=== PATIENT | female | born 1955 | race Caucasian/White ===

== ENCOUNTER 2017-01-14 05:54 | Inpatient (IN) ==
[2017-01-14] MEDS ORDERED: Albuterol 2.5 MG/3 ML NEBULIZER IH ONE (06:13)
[2017-01-14] MEDS ORDERED: Clindamycin 900 MG/50 ML 900 MG/50 ML IV.SOLN IVPB ONE (06:13)
[2017-01-14] MEDS ORDERED: Ringers Solution, Lactated 1,000 ML IVC SCH ×2 (06:15→13:25)
[2017-01-14] MEDS ORDERED: *HR* FentaNYL (PF) 100 MCG/2 ML VIAL ONE (06:30)
[2017-01-14] MEDS ORDERED: *HR* Propofol 200 MG/20 ML VIAL IVP ONE (06:30)
[2017-01-14] MEDS ORDERED: Ondansetron 4 MG/2 ML VIAL ONE (06:30)
[2017-01-14] MEDS ORDERED: *HR* Succinylcholine 200 MG/10 ML VIAL IVP ONE (06:30)
[2017-01-14] MEDS ORDERED: *HR* Remifentanil 1 MG VIAL IVP ONE ×2 (06:30→10:47)
[2017-01-14] MEDS ORDERED: Lidocaine -MPF 2% 2 ML VIAL ONE (06:30)
[2017-01-14] MEDS ORDERED: Dexamethasone 4 MG/ML VIAL ONE (06:30)
[2017-01-14] MEDS ORDERED: *HR* Labetalol 100 MG/20 ML MDV IVP PRN (06:57)
[2017-01-14] MEDS ORDERED: *HR* Morphine 2 MG/ML SYRINGE IVP PRN ×2 (06:57→13:25)
[2017-01-14] MEDS ORDERED: Ondansetron 4 MG/2 ML VIAL IVP ONE (06:57)
[2017-01-14] MEDS ORDERED: Gabapentin 300 MG CAPSULE PO ONE (07:00)
--- NOTE | 2017-01-14 07:00 | Anesthesia Evaluation PreOp ---
Date of Encounter: 01/14/17 Time of Encounter: 06:45 - Past History Planned Operation: anterior cervical decompression Cardiac History: Other (Was told she had an abnormal heart condition as a child. Was seen by doctors at the time. 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.), Past Anesthesia Alcohol Use: none Drug use: none Medications and Allergies Acetaminophen [Tylenol] 325 mg PO Q6HR PRN 01/14/17 [History] Albuterol Sulfate [Ventolin Hfa] 2 gm IH Q4H PRN 01/14/17 [History] carBAMazepine [Tegretol Xr] 200 mg PO BID 01/14/17 [History] metFORMIN [Glucophage] 500 mg PO BIDWM 01/14/17 [History] Allergies clonazepam [From Klonopin] Adverse Reaction (Verified 01/14/17 06:27) See Comments ibuprofen Adverse Reaction (Verified 01/14/17 06:27) See Comments naproxen [From Naprosyn] Adverse Reaction (Verified 01/14/17 06:27) See Comments Penicillins [PCN] Adverse Reaction (Verified 01/14/17 06:27) See Comments - Meds/Allergy Pre-op Review Medications Reviewed: Yes Allergies Reviewed: Yes Anesthesia Results - Labs Laboratory Tests 01/09/17 01/09/17 01/09/17 13:28 13:28 13:28 WBC 6.6 Hgb 14.3 Hct 42.6 Plt Count 245 INR 1.2 Sodium 134 L Potassium 4.6 H Chloride 100 Carbon Dioxide 26 BUN 9 Creatinine 0.65 - Imaging EKG: image reviewed (sinus rhythm with nonspecific T wave abnormality) Anesthesia Exam Selected Entries 01/14/17 06:22 Temperature 98.7 F Pulse Rate 77 Respiratory Rate 18 Blood Pressure 141/79 O2 Sat by Pulse Oximetry 96 Height: 4'9" Weight: 98 lbs NPO (# of Hours): over 8 hours - HEENT Pupil (Motor): Pupils equal Teeth: Edentulous Oral Opening: Greater than 3 - BINMAN BINMAN Sensory: Normal: LUE (constant numbness and weakness ) - Cardiac Rhythm: Regular Murmur: None - Pulmonary Breath Sounds: bilateral Clear Respiratory Effort: Symmetrical Anesthesia Assess/Plan ASA Score: 3 Modified Oleksandr Scale for Level of Consciousness: Cooperative, oriented, and tranquil Anesthetic Plan: General Monitoring Plan: Standard Monitors Recovery Plan: PACU
--- NOTE | 2017-01-14 07:32 | History & Physical Report ---
Date of Encounter: 01/14/17 Time of Encounter: 07:32 24 Hour HP Update - Instructions Instructions: If the History and Physical is less than 30 days old and was completed prior to A.M. admission and or procedure and has NOT been updated on calendar day of procedure please complete this update prior to performing procedure. - Update Patient reports changes in Medical Condition: No Changes in examination, assessment, or condition: No Changes in Medication: No Preop tests/diagnostics Reviewed: Yes Pre-Op MRSA Screen: Negative Surgery Remains Indicated: Yes Consent for Planned Operative Procedure(s) Verified: Yes - Pre-Operative Checklist Preoperative Checklist Indicated: No Prophylactic Antibiotic Ordered: Yes Home Medications Include Beta Neville: No Beta Neville Taken Today (Day of Surgery): No Beta Neville Taken Yesterday (Day Prior to Surgery): No Is VTE Prophylaxis Indicated?: Yes
[2017-01-14] MEDS ORDERED: Acetaminophen IV 1,000 MG/100 ML INFUS..BTL ONE (08:10)
[2017-01-14] MEDS ORDERED: EPHEDrine 50 MG/ML VIAL ONE (08:15)
[2017-01-14] MEDS ORDERED: *HR* Morphine 10 MG/ML VIAL ONE (11:38)
--- NOTE | 2017-01-14 11:58 | Orthopedic Operative Note ---
Date of procedure: 01/14/17 Pre-op diagnosis: Cervical stenosis, cervical myelopathy Post-op diagnosis: same Operation/Findings: Corpectomy C4, cervical fusion C3-C6: The patient was brought to the operating room and placed supine on the operating room table. Successful general endotracheal anesthesia intubation was performed. Neurophysiologic monitoring personnel placed leads on the upper and lower extremities as well as the cranium for EMG monitoring purposes. Appropriate baseline potentials were noted by the neurophysiologic monitoring staff. Juarez catheter was placed prior to positioning. Compression boots and stockings were placed for deep vein thrombosis prophylaxis. Padding was also placed all bony prominences including the ulnar nerve near the medial epicondyles of the elbows were appropriately padded. Mild traction was placed on the bilateral shoulders and taped into place. Preoperative antibiotics were administered. The area from the mandible bilaterally to the upper thoraces was prepped and draped in the usual sterile fashion. An oblique incision was made at the level of the cricoid cartilage which is approximately 3 cm in length and extended from the midline of the cervical spine laterally and proximally towards the sternocleidomastoid muscle on the left. It was 1 cm medial and parallel to the left sternocleidomastoid muscle. We then performed standard medial approach to the carotid sheath. Sponges were used to tease the fascial medial to the sternocleidomastoid muscle while carefully controlling and palpating the carotid artery. Using careful dissection we were able to get to the level of the anterior vertebral bodies and longus coli muscles. The spinal needle was placed at the appropriate C5-6 level, and intraoperative radiograph was obtained which was a cervical spine lateral radiograph. The needle and radiograph confirmed we were at the correct C5-6 operative level. We further exposed this level by using Bovie cautery under the medial edge of the longus colli muscles to allow them to be retracted approximately 2 mm laterally on each side. An 11 blade was used to perform anterior discectomy at the appropriate C5-6 level after an initial annulotomy of the anterior longitudinal ligament and annulus was performed. Further disc material was removed with pituitary Rongeurs. Subsequently, Synthes pins were placed at the C5 and C6 vertebral bodies respectively to provide distraction. We then used a Trimline cervical retractor which was placed in both medial and lateral as well as inferior superior direction to allow full visualization of the appropriate C5-6 disc and C5 and C6 vertebral bodies. The Leica microscope was brought to the field and the remainder of the procedure was performed under the guidance of this microscope. Using pituitary rongeurs and small curettes, various micro- instruments, a full discectomy was performed at the appropriate C5-6 level. The posterior longitudinal ligament was encountered and appeared partially calcified. A portion of this ligament was removed. After complete and thorough discectomy and removal of spondylitic material was performed the endplates of the C5 and C6 vertebral bodies were prepared with a bur until allow bleeding of cancellous bone. A 7mm trial graft was evaluated and appeared to fit quite well within the excised C5-6 disc space. A cortico- cancellous allograft of 7 mm was utilized, carefully tapped into place within the excised disc space with the aid of a bone tamp. It was seated approximately 2 mm from the anterior edge of the cortex of the adjacent vertebral bodies. We then turned our attention to the C4-5 level where a similar series of procedures was performed including discectomy, removal of spondylitic material, and end plate preparation. Now that the C4-5 level was decompressed, we turned our attention to the C3-4 level and again performed discectomy, removal of spondylitic material, and endplate preparation. Again we decompressed to the anterior portion of the posterior longitudinal ligament. Portions of this ligament were removed as was done previously at C4-5. At this point the C3-4 and C4-5 levels had been decompressed, and this left intervening C4 vertebral body bone. Using Kerrison Rogeurs removed C4 vertebral body bone in saved this bone for later use. This was supplemented with some been demineralized bone matrix. After the corpectomy of C4 the space from the inferior portion of C3 to the superior endplate of C5 was fully decompressed and the spinal cord and portions of posterior longitudinal ligament was visualized. We selected an appropriate sized corpectomy cage to fill this space. We then placed autograft bone as well as bone matrix within the corpectomy cage. We then carefully placed the expandable cage in the space between the inferior portion of C3 and the superior portion of C5. When found to be in appropriate position the separator inserter was removed. A cervical plate was then placed on the anterior aspect of the C3, C4, C5 and C6 vertebral bodies. The plate was placed in the midline position after drilling six 13 mm self tapping screws and inserting them. They were locked in place using standard Venture plate maneuvers. At this point a lateral radiograph of the cervical spine was obtained and showed satisfactory position of the graft , expandable cage, and plate. The wound was copiously irrigated and bleeders encountered were cauterized using Bovie cautery. Platysma was closed with interrupted 2-0 Vicryl sutures. Running 3-0 Monocryl suture was used for skin closure. Sterile dressing was placed over the neck wound. A cervical collar was placed. The patient was transferred to a hospital bed and extubated. The patient was noted to be fully motor and sensory intact in the recovery room at the end of the procedure. The medications. All sponge instrument and needle counts were correct at the end of the procedure. Anesthesia: GETA Surgeon: Ayad Lynne Jr Estimated blood loss (cc): 100 Condition: stable Disposition: PACU
--- NOTE | 2017-01-14 13:07 | Anesthesia Evaluation Post Op ---
Date of Encounter: 01/14/17 Time of Encounter: 12:59 - Vital Signs Vital Signs: vss - Lungs Lungs: Clear Ascult./Percussion - Airway Airway: Non-obstructed - Cardiovascular Baseline Rhythm - Mental Status Mental Status: Alert & Oriented, Answers Appropriately - Pain Pain Scale used: Gagan (Faces) - Nausea Vomiting Nausea Vomiting: Not Present - Hydration Hydration: Ice chips - Discharge PostOp Status: Transfer Patient to floor
[2017-01-14] MEDS ORDERED: Naloxone 0.4 MG/ML INJ IVP PRN (13:25)
[2017-01-14] MEDS ORDERED: Acetaminophen 325 MG TABLET PO PRN (13:25)
[2017-01-14] MEDS ORDERED: Ondansetron 4 MG/2 ML VIAL IVP PRN (13:25)
[2017-01-14] MEDS: *HR* OxyCODONE Immed Rel 5 MG TABLET PO PRN ×2 (15:04→21:31)
[2017-01-14] MEDS ORDERED: Clindamycin 600 MG/50 ML 600 MG/50 ML IV.SOLN IVPB SCH (16:00)
[2017-01-14] MEDS ORDERED: Clindamycin 600 MG in D5% in Water 50 ML IVPB SCH (16:00)
[2017-01-14] MEDS: Clindamycin 600 MG/50 ML 600 MG/50 ML IV.SOLN IVPB SCH (16:43)
[2017-01-14] MEDS: *HR* Metformin 500 MG TABLET PO SCH (16:44)
[2017-01-14] MEDS: CarBAMazepine XR (12 hr) 100 MG TAB PO SCH (21:50)
[2017-01-15] MEDS: Clindamycin 600 MG/50 ML 600 MG/50 ML IV.SOLN IVPB SCH (00:30)
[2017-01-15] MEDS: *HR* OxyCODONE Immed Rel 5 MG TABLET PO PRN (04:53)
[2017-01-15] MEDS: *HR* Metformin 500 MG TABLET PO SCH (08:41)
[2017-01-15] MEDS: CarBAMazepine XR (12 hr) 100 MG TAB PO SCH (08:41)
[2017-01-15 11:15] VITALS: BP 147/79
--- NOTE | 2017-01-15 11:41 | Discharge Summary ---
Date of Encounter: 01/15/17 Time of Encounter: 11:39 - Discharge Diagnosis (1) Cervical stenosis of spinal canal Priority: Primary Status: Chronic (2) Cervical myelopathy Priority: Secondary Status: Chronic - Discharge Medications Prescriptions: OxyCODONE Immed Rel [Roxicodone 5 MG] 5 mg PO Q6HR PRN #60 tablet PRN Reason: Severe Pain Home Medications: Acetaminophen [Tylenol] 325 mg PO Q6HR PRN 01/14/17 [History] Albuterol Sulfate [Ventolin Hfa] 2 gm IH Q4H PRN 01/14/17 [History] carBAMazepine [Tegretol Xr] 200 mg PO BID 01/14/17 [History] metFORMIN [Glucophage] 500 mg PO BIDWM 01/14/17 [History] OxyCODONE Immed Rel [Roxicodone 5 MG] 5 mg PO Q6HR PRN #60 tablet 01/15/17 [Rx] Allergies/Adverse Reactions: Allergies clonazepam [From Klonopin] Adverse Reaction (Verified 01/14/17 06:27) See Comments ibuprofen Adverse Reaction (Verified 01/14/17 06:27) See Comments naproxen [From Naprosyn] Adverse Reaction (Verified 01/14/17 06:27) See Comments Penicillins [PCN] Adverse Reaction (Verified 01/14/17 06:27) See Comments Labs on day of discharge: Labs from last 24 hours 01/15/17 01/15/17 01/14/17 11:14 07:08 20:27 POC Glucose 115 H 116 H 121 H 01/14/17 01/14/17 01/14/17 16:49 13:44 12:12 POC Glucose 124 H 140 H 126 H - Impressions ITS Impressions Cervical Spine X-Ray 01/14/17 08:02 IMPRESSION: Intraprocedural fluoroscopic spot images as above. See separate procedure report for more information. D/ / Rubens Ewing MD / Rubens Ewing MD Interpreting Provider: Rubens Ewing MD Fluoroscopy 01/14/17 08:02 IMPRESSION: Intraprocedural fluoroscopic spot images as above. See separate procedure report for more information. D/ / Rubens Ewing MD / Rubens Ewing MD Interpreting Provider: Rubens Ewing MD Cervical Spine X-Ray 01/15/17 07:17 IMPRESSION: Expected postsurgical changes with no acute complication. D/ / 01/15/2017 08:15:00 Sanjiv Garcia MD / [email or web address] Interpreting Provider: Sanjiv Garcia MD Date of admission: 01/14/17 13:18 Primary care physician: Taylor Casey Consults: 01/14/17 13:25 Consult to Occupational Therapy [CONS] Routine Comment: Evaluate, develop and implement POC Reason for Consult: Postoperative Consult to Physical Therapy [CONS] Routine Comment: Evaluate, develop and implement POC Reason for Consult: Postoperative Consult to Spine Navigator [CONS] [CONS] Routine - Patient Status Disposition: Home, Self-Care Condition: Good Functional capacity at discharge: uses cane/walker Overall status at discharge: patient is progressing back to baseline - Discharge Instructions Follow Up With: Lakisha Patton PAC [Physician Gymnastic Coach] - 01/28/17 8:00 am Taylor Casey [Primary Care Provider] - - Diet and Activity Activity: as per physical therapy Diet: advance to your usual diet - Hospital Course Hospital course: Ms. Amador is a 61 year old female The patient had an uneventful postoperative course. Progressed from intravenous analgesic needs to oral analgesic needs only. Remained neurovascularly intact and mobilized satisfactorily. All intraoperative and/or postoperative radiographic studies were satisfactory. Patient is discharged with plan for rehabilitation and follow-up in 2 weeks post discharge on analgesic medication and patient's home medications. - Time Spent with Patient Total time spent providing and/or coordinating discharge services: - VTE Documentation of Mechanical Device: Intermittent pneumatic compression device
== END 2017-01-15 14:55 | disposition home or self-care (01) | DRG 472 ==
LOC: SAMDAY 05:54 → 3NENU 13:18
PROVIDERS: ADMIT Orthopaedic Surgery Orthopaedic Surgery of the Spine; ATTEND Orthopaedic Surgery Orthopaedic Surgery of the Spine
PROC: SPICORP (2017-01-14 07:45)

== ENCOUNTER 2020-02-15 08:28 | Inpatient (IN) ==
[2020-02-15] MEDS ORDERED: Isovue-370 500 ML BOTTLE IVP ONE (09:08)
[2020-02-15] MEDS ORDERED: Dexamethasone 4 MG/ML VIAL IVP ONE (09:09)
[2020-02-15 09:15] LABS: Basophils % 0.5 %; Eosinophils # 0.1 K/mcL (0.0-0.6); Eosinophils % 1.4 %; Hematocrit 44.2 % (35.3-44.9); Hemoglobin 14.5 g/dL (11.5-15.4); Immature Granulocytes % 0.8 % (0-4); Lymphocytes % 22.9 %; Mean Corpuscular HGB Conc 32.8 g/dL (31.6-35.5); Mean Corpuscular Hemoglobin 35.1 pg (28.0-33.3); Mean Platelet Volume 10.3 fL (9.4-12.4); Monocytes # 0.7 K/mcL (0.0-1.3); Monocytes % 8.2 %; Neutrophils # 5.6 K/mcL (1.6-8.9); Nucleated Red Blood Cells 0.2 /100 WBC (0); Platelet Count 224 K/mcL (140-400); Red Blood Count 4.13 M/mcL (3.82-4.97); Red Cell Distribution Width 14.5 % (11.5-14.5); Segmented Neutrophils % 66.2 %; White Blood Count 8.5 K/mcL (4.3-11.1)
[2020-02-15 09:25] LABS: BUN/Creatinine Ratio 23 (6-26); Blood Urea Nitrogen 11 mg/dL (8-23); Carbon Dioxide 29 mEq/L (23-29); Chloride 102 mEq/L (98-107); Glucose 98 mg/dL (70-105); Osmolality,Calculated 281 (280-300); Potassium 4.4 mEq/L (3.5-5.1); Sodium 136 mEq/L (136-145); eGFR For African Americans > 60 (> 60); eGFR For Non-African Americans > 60 (> 60)
[2020-02-15 09:26] LABS: Troponin I < 0.03 ng/mL (< 0.04)
[2020-02-15] MEDS ORDERED: Azithromycin 500 MG in D5% in Water 250 ML IVPB ONE (12:30)
[2020-02-15] MEDS ORDERED: cefTRIAXone 1,000 MG in 0.9 % Sodium Chloride Mini Bag 100 ML IVPB ONE (12:30)
[2020-02-15] MEDS ORDERED: Naloxone 0.4 MG/ML INJ IVP PRN (12:37)
[2020-02-15] MEDS ORDERED: Ondansetron 4 MG/2 ML VIAL IVP PRN (12:37)
[2020-02-15] MEDS ORDERED: *HR* Labetalol 20 MG/4 ML SYRINGE IVP PRN (13:01)
[2020-02-15] MEDS: Ipratropium/Albuterol Neb 3 ML IH SCH ×2 (15:44→17:25)
[2020-02-15] MEDS: Nicotine 21 MG PATCH.TD24 TD SCH (17:30)
[2020-02-15] MEDS: MethylPREDNISolone 40 MG/ML VIAL IVP SCH (18:05)
[2020-02-15] MEDS: CarBAMazepine XR (12 hr) 100 MG TAB PO SCH (21:49)
[2020-02-15] MEDS: Budesonide/Formoterol 160/4.5 1 PUFF INH IH SCH (22:27)
[2020-02-16] MEDS: Ipratropium/Albuterol Neb 3 ML IH SCH ×7 (00:11→23:46)
[2020-02-16 01:18] LABS: Basophils % 0.3 %; Hematocrit 39.1 % (35.3-44.9); Hemoglobin 13.2 g/dL (11.5-15.4); Immature Granulocytes % 1.2 % (0-4); Lymphocytes % 13.6 %; Mean Corpuscular HGB Conc 33.8 g/dL (31.6-35.5); Mean Corpuscular Hemoglobin 35.7 pg (28.0-33.3); Mean Corpuscular Volume 105.7 fL (83.0-100.0); Mean Platelet Volume 10.6 fL (9.4-12.4); Monocytes # 0.4 K/mcL (0.0-1.3); Monocytes % 4.6 %; Neutrophils # 6.2 K/mcL (1.6-8.9); Nucleated Red Blood Cells 0.4 /100 WBC (0); Platelet Count 225 K/mcL (140-400); Red Cell Distribution Width 13.7 % (11.5-14.5); Segmented Neutrophils % 80.3 %; White Blood Count 7.7 K/mcL (4.3-11.1)
[2020-02-16 01:40] LABS: BUN/Creatinine Ratio 21 (6-26); Blood Urea Nitrogen 9 mg/dL (8-23); Carbon Dioxide 27 mEq/L (23-29); Chloride 99 mEq/L (98-107); Glucose 133 mg/dL (70-105); Magnesium 1.8 mg/dL (1.6-2.6); Osmolality,Calculated 275 (280-300); Potassium 4.2 mEq/L (3.5-5.1); Sodium 132 mEq/L (136-145); eGFR For African Americans > 60 (> 60); eGFR For Non-African Americans > 60 (> 60)
[2020-02-16 01:49] LABS: Thyroid Stimulating Hormone 0.298 mcIU/mL (0.340-5.600)
[2020-02-16 01:59] LABS: Folate 6.3 ng/mL (3.0-16.0)
[2020-02-16] MEDS: MethylPREDNISolone 40 MG/ML VIAL IVP SCH ×2 (05:34→17:12)
[2020-02-16] MEDS: *HR* Enoxaparin 40 MG/0.4 ML SYRINGE SQ SCH (05:34)
[2020-02-16] MEDS: Budesonide/Formoterol 160/4.5 1 PUFF INH IH SCH ×2 (07:41→20:16)
[2020-02-16] MEDS ORDERED: *HR* Metoprolol 5 MG/5 ML VIAL IVP STA (08:03)
[2020-02-16] MEDS: Nicotine 21 MG PATCH.TD24 TD SCH (08:19)
[2020-02-16] MEDS: Azithromycin 250 MG TABLET PO SCH (08:19)
[2020-02-16] MEDS: CarBAMazepine XR (12 hr) 100 MG TAB PO SCH ×2 (08:19→21:23)
[2020-02-16] MEDS ORDERED: Acetaminophen 325 MG TABLET PO PRN (16:08)
[2020-02-17] MEDS: Ipratropium/Albuterol Neb 3 ML IH SCH ×2 (03:46→07:32)
[2020-02-17] MEDS: MethylPREDNISolone 40 MG/ML VIAL IVP SCH (05:28)
[2020-02-17] MEDS: *HR* Enoxaparin 40 MG/0.4 ML SYRINGE SQ SCH (05:28)
[2020-02-17 05:32] LABS: Triiodothyronine (T3) Free 2.24 pg/mL (2.50-3.90)
[2020-02-17 07:15] VITALS: BP 127/82
[2020-02-17] MEDS: Budesonide/Formoterol 160/4.5 1 PUFF INH IH SCH (07:32)
[2020-02-17] MEDS ORDERED: *HR* Metoprolol 5 MG/5 ML VIAL IVP ONE (07:50)
[2020-02-17] MEDS: CarBAMazepine XR (12 hr) 100 MG TAB PO SCH (08:20)
[2020-02-17] MEDS: Azithromycin 250 MG TABLET PO SCH (08:20)
[2020-02-17] MEDS: Nicotine 21 MG PATCH.TD24 TD SCH (08:21)
[2020-02-17] MEDS ORDERED: Aspirin Enteric Coated 81 MG Tablet PO SCH (09:00)
== END 2020-02-17 11:17 | disposition home or self-care (01) | DRG 191 ==
LOC: EMEROOARM 08:28 → 3BNU 08:28 → SUATTDRO 12:37 → 3BNU 15:22
PROVIDERS: ADMIT Pharmacist; ATTEND Internal Medicine

== ENCOUNTER 2020-11-01 08:24 | Inpatient (IN) ==
[2020-11-01] MEDS ORDERED: Naloxone 0.4 MG/ML INJ IVP PRN (12:10)
[2020-11-01] MEDS ORDERED: Ondansetron 4 MG/2 ML VIAL IVP PRN (12:10)
[2020-11-01] MEDS ORDERED: DilTIAZem 50 MG/50 ML IV.SOLN IVC SCH (12:15)
[2020-11-01 12:40] LABS: Basophils % 0.4 %; Eosinophils # 0.1 K/mcL (0.0-0.6); Eosinophils % 0.5 %; Hematocrit 35.3 % (35.3-44.9); Hemoglobin 11.2 g/dL (11.5-15.4); Immature Granulocytes % 0.7 % (0-4); Lymphocytes # 1.2 K/mcL (0.6-4.6); Lymphocytes % 11.8 %; Mean Corpuscular HGB Conc 31.7 g/dL (31.6-35.5); Mean Corpuscular Hemoglobin 33.8 pg (28.0-33.3); Mean Corpuscular Volume 106.6 fL (83.0-100.0); Mean Platelet Volume 9.2 fL (9.4-12.4); Monocytes # 0.8 K/mcL (0.0-1.3); Monocytes % 7.7 %; Neutrophils # 8.1 K/mcL (1.6-8.9); Nucleated Red Blood Cells 0.5 /100 WBC (0); Platelet Count 223 K/mcL (140-400); Red Blood Count 3.31 M/mcL (3.82-4.97); Red Cell Distribution Width 15.8 % (11.5-14.5); Segmented Neutrophils % 78.9 %; White Blood Count 10.2 K/mcL (4.3-11.1)
[2020-11-01 12:53] LABS: INR 1.4
[2020-11-01 12:56] LABS: Activated Partial Thrombo Time 29.2 Seconds (26.0-36.0)
[2020-11-01 13:05] LABS: Alanine Aminotransferase 8 Units/L (7-52); Albumin 3.8 g/dL (3.5-5.7); Albumin/Globulin Ratio 1.1 (1.1-2.2); Alkaline Phosphatase 94 Units/L (34-104); Aspartate Amino Transferase 14 Units/L (13-39); BUN/Creatinine Ratio 34 (6-26); Bilirubin,Total 0.7 mg/dL (0.3-1.0); Blood Urea Nitrogen 21 mg/dL (8-23); Calcium 9.7 mg/dL (8.6-10.3); Carbon Dioxide 34 mEq/L (23-29); Chloride 102 mEq/L (98-107); Chol/HDL Ratio 2.4 (0-4.9); Cholesterol 157 mg/dL (< 200); Globulin 3.6 g/dL (2.4-3.5); Glucose 104 mg/dL (70-105); HDL Cholesterol 65 mg/dL (40-59); LDL Cholesterol,Calculated 81 mg/dL (< 100); Magnesium 1.7 mg/dL (1.6-2.6); Osmolality,Calculated 291 (280-300); Potassium 4.3 mEq/L (3.5-5.1); Sodium 139 mEq/L (136-145); Total Protein 7.4 g/dL (6.4-8.9); Triglycerides 55 mg/dL (< 150); Troponin I 0.07 ng/mL (< 0.04); eGFR For African Americans > 60 (> 60); eGFR For Non-African Americans > 60 (> 60)
[2020-11-01] MEDS ORDERED: Levothyroxine 25 MCG TABLET PO SCH (13:15)
[2020-11-01 13:18] LABS: Bilirubin,Urine Negative (Negative); Blood,Urine Negative (Negative); Clarity,Urine Clear (Clear); Color,Urine Colorless (Yellow); Glucose,Urine (UA) Normal (Normal); Ketones,Urine Negative (Negative); Leukocyte Esterase,Urine Negative (Negative); Nitrite,Urine Negative (Negative); Protein,Urine Negative (Neg-Trace); Specific Gravity,Urine 1.009 (1.010-1.025); Urobilinogen,Urine Normal (Normal)
[2020-11-01] MEDS ORDERED: carBAMazepine 200 MG TABLET PO SCH (15:00)
[2020-11-01] MEDS: Ipratropium/Albuterol Neb 3 ML IH SCH ×3 (15:24→21:04)
[2020-11-01] MEDS ORDERED: *HR* Heparin 5,000 UNIT/ML VIAL IVP PRN (15:25)
[2020-11-01] MEDS ORDERED: *HR* Heparin 5,000 UNIT/ML VIAL IVP ONE (15:25)
[2020-11-01] MEDS: MethylPREDNISolone 40 MG/ML VIAL IVP SCH ×2 (16:00→23:41)
[2020-11-01] MEDS: Heparin 25,000UNIT/250ML 1/2NS 25,000 UNIT/250 ML IV.SOLN IVC SCH (16:01)
[2020-11-01] MEDS ORDERED: Perflutren Lipid Microsphere 1.3 ML in 0.9 % Sodium Chloride 8.7 ML IVP PRN (16:09)
[2020-11-01] MEDS: Doxycycline 100 MG in 0.9 % Sodium Chloride Mini Bag 100 ML IVPB SCH (18:08)
[2020-11-01] MEDS: carBAMazepine 200 MG TABLET PO SCH (20:22)
[2020-11-01] MEDS: Budesonide/Formoterol 160/4.5 1 PUFF INH IH SCH (21:04)
[2020-11-01] MEDS ORDERED: Furosemide 20 MG/2 ML VIAL IVP ONE (21:33)
[2020-11-02] MEDS: Ipratropium/Albuterol Neb 3 ML IH SCH ×4 (03:47→22:51)
[2020-11-02 04:29] LABS: Hematocrit 32.1 % (35.3-44.9); Hemoglobin 10.2 g/dL (11.5-15.4); Mean Corpuscular HGB Conc 31.8 g/dL (31.6-35.5); Mean Corpuscular Hemoglobin 33.4 pg (28.0-33.3); Mean Corpuscular Volume 105.2 fL (83.0-100.0); Mean Platelet Volume 9.8 fL (9.4-12.4); Platelet Count 216 K/mcL (140-400); Red Blood Count 3.05 M/mcL (3.82-4.97); Red Cell Distribution Width 15.4 % (11.5-14.5); White Blood Count 6.3 K/mcL (4.3-11.1)
[2020-11-02 04:45] LABS: BUN/Creatinine Ratio 33 (6-26); Blood Urea Nitrogen 18 mg/dL (8-23); Calcium 9.7 mg/dL (8.6-10.3); Carbon Dioxide 34 mEq/L (23-29); Chloride 99 mEq/L (98-107); Glucose 147 mg/dL (70-105); Magnesium 1.6 mg/dL (1.6-2.6); Osmolality,Calculated 289 (280-300); Phosphorous 3.8 mg/dL (2.7-4.5); Potassium 4.2 mEq/L (3.5-5.1); Sodium 137 mEq/L (136-145); eGFR For African Americans > 60 (> 60); eGFR For Non-African Americans > 60 (> 60)
[2020-11-02] MEDS: *HR* Heparin 5,000 UNIT/ML VIAL IVP PRN ×2 (05:05→12:20)
[2020-11-02 05:09] LABS: Folate 6.9 ng/mL (3.0-16.0)
[2020-11-02] MEDS: Doxycycline 100 MG in 0.9 % Sodium Chloride Mini Bag 100 ML IVPB SCH ×2 (05:27→17:45)
[2020-11-02] MEDS: carBAMazepine 200 MG TABLET PO SCH ×2 (09:33→20:20)
[2020-11-02] MEDS: MethylPREDNISolone 40 MG/ML VIAL IVP SCH ×3 (09:33→23:12)
[2020-11-02] MEDS: Budesonide/Formoterol 160/4.5 1 PUFF INH IH SCH ×2 (10:57→22:52)
[2020-11-02] MEDS: Heparin 25,000UNIT/250ML 1/2NS 25,000 UNIT/250 ML IV.SOLN IVC SCH (23:23)
[2020-11-03 03:08] LABS: Hematocrit 31.2 % (35.3-44.9); Hemoglobin 10.2 g/dL (11.5-15.4); Mean Corpuscular HGB Conc 32.7 g/dL (31.6-35.5); Mean Corpuscular Hemoglobin 34.1 pg (28.0-33.3); Mean Corpuscular Volume 104.3 fL (83.0-100.0); Mean Platelet Volume 10.4 fL (9.4-12.4); Platelet Count 229 K/mcL (140-400); Red Blood Count 2.99 M/mcL (3.82-4.97); Red Cell Distribution Width 15.2 % (11.5-14.5); White Blood Count 7.8 K/mcL (4.3-11.1)
[2020-11-03 03:30] LABS: BUN/Creatinine Ratio 62 (6-26); Blood Urea Nitrogen 29 mg/dL (8-23); Calcium 9.7 mg/dL (8.6-10.3); Carbon Dioxide 29 mEq/L (23-29); Chloride 100 mEq/L (98-107); Glucose 182 mg/dL (70-105); Magnesium 1.6 mg/dL (1.6-2.6); Osmolality,Calculated 288 (280-300); Potassium 4.4 mEq/L (3.5-5.1); Sodium 134 mEq/L (136-145); eGFR For African Americans > 60 (> 60); eGFR For Non-African Americans > 60 (> 60)
[2020-11-03] MEDS: Ipratropium/Albuterol Neb 3 ML IH SCH ×4 (04:47→22:30)
[2020-11-03] MEDS: Doxycycline 100 MG in 0.9 % Sodium Chloride Mini Bag 100 ML IVPB SCH (06:33)
[2020-11-03] MEDS: MethylPREDNISolone 40 MG/ML VIAL IVP SCH ×2 (08:28→16:45)
[2020-11-03] MEDS: carBAMazepine 200 MG TABLET PO SCH ×2 (08:28→21:42)
[2020-11-03] MEDS: Budesonide/Formoterol 160/4.5 1 PUFF INH IH SCH ×2 (10:55→22:30)
[2020-11-03] MEDS ORDERED: Furosemide 40 MG/4 ML VIAL IVP SCH (13:45)
[2020-11-03 14:31] LABS: INR 1.3; Prothrombin Time 14.8 Seconds (9.4-12.1)
[2020-11-03] MEDS ORDERED: Nicotine 21 MG PATCH.TD24 TD SCH (15:00)
[2020-11-03] MEDS ORDERED: Acetaminophen 325 MG TABLET PO PRN ×2 (17:35→20:29)
[2020-11-03] MEDS ORDERED: *HR* Warfarin 5 MG TABLET PO ONE (18:00)
[2020-11-03] MEDS ORDERED: Warfarin perPT PO PRN ×2 (18:00→20:34)
[2020-11-03] MEDS ORDERED: Naloxone 0.4 MG/ML INJ IVP PRN (19:38)
[2020-11-03] MEDS ORDERED: Ondansetron 4 MG/2 ML VIAL IVP PRN (19:38)
[2020-11-03] MEDS ORDERED: Furosemide 20 MG TABLET PO SCH (19:38)
[2020-11-03] MEDS ORDERED: MethylPREDNISolone 40 MG/ML VIAL IVP SCH (23:00)
[2020-11-04] MEDS: MethylPREDNISolone 40 MG/ML VIAL IVP SCH ×3 (00:22→15:38)
[2020-11-04] MEDS: Ipratropium/Albuterol Neb 3 ML IH SCH ×4 (03:19→20:11)
[2020-11-04 03:59] LABS: Hematocrit 33.7 % (35.3-44.9); Hemoglobin 10.8 g/dL (11.5-15.4); Mean Corpuscular Hemoglobin 33.8 pg (28.0-33.3); Mean Corpuscular Volume 105.3 fL (83.0-100.0); Mean Platelet Volume 10.3 fL (9.4-12.4); Platelet Count 263 K/mcL (140-400); Red Cell Distribution Width 15.8 % (11.5-14.5); White Blood Count 8.3 K/mcL (4.3-11.1)
[2020-11-04 04:14] LABS: BUN/Creatinine Ratio 46 (6-26); Blood Urea Nitrogen 34 mg/dL (8-23); Calcium 9.8 mg/dL (8.6-10.3); Carbon Dioxide 33 mEq/L (23-29); Chloride 101 mEq/L (98-107); Glucose 160 mg/dL (70-105); Magnesium 1.8 mg/dL (1.6-2.6); Osmolality,Calculated 297 (280-300); Phosphorous 3.8 mg/dL (2.7-4.5); Potassium 4.7 mEq/L (3.5-5.1); Sodium 138 mEq/L (136-145); eGFR For African Americans > 60 (> 60); eGFR For Non-African Americans > 60 (> 60)
[2020-11-04] MEDS: Levothyroxine 25 MCG TABLET PO SCH (05:39)
[2020-11-04] MEDS ORDERED: Levothyroxine 25 MCG TABLET PO SCH (06:30)
[2020-11-04] MEDS ORDERED: Furosemide 40 MG/4 ML VIAL IVP SCH (09:00)
[2020-11-04] MEDS: carBAMazepine 200 MG TABLET PO SCH ×2 (09:06→20:11)
[2020-11-04] MEDS: Nicotine 21 MG PATCH.TD24 TD SCH (09:07)
[2020-11-04] MEDS: Budesonide/Formoterol 160/4.5 1 PUFF INH IH SCH ×2 (10:10→20:12)
[2020-11-04 10:35] LABS: Heparin anti-factor XA UFH < 0.04 IU/mL (0.30-0.70)
[2020-11-04 10:36] LABS: INR 1.4; Prothrombin Time 15.9 Seconds (9.4-12.1)
[2020-11-04] MEDS ORDERED: *HR* Warfarin 5 MG TABLET PO ONE (18:00)
[2020-11-05] MEDS: MethylPREDNISolone 40 MG/ML VIAL IVP SCH ×2 (00:25→08:55)
[2020-11-05] MEDS: Ipratropium/Albuterol Neb 3 ML IH SCH ×4 (04:04→21:29)
[2020-11-05] MEDS: Levothyroxine 25 MCG TABLET PO SCH (05:50)
[2020-11-05 07:48] LABS: Hematocrit 33.3 % (35.3-44.9); Hemoglobin 10.9 g/dL (11.5-15.4); Mean Corpuscular HGB Conc 32.7 g/dL (31.6-35.5); Mean Corpuscular Hemoglobin 34.2 pg (28.0-33.3); Mean Corpuscular Volume 104.4 fL (83.0-100.0); Mean Platelet Volume 9.8 fL (9.4-12.4); Platelet Count 255 K/mcL (140-400); Red Blood Count 3.19 M/mcL (3.82-4.97); Red Cell Distribution Width 15.9 % (11.5-14.5); White Blood Count 9.9 K/mcL (4.3-11.1)
[2020-11-05 08:04] LABS: INR 2.5; Prothrombin Time 28.4 Seconds (9.4-12.1)
[2020-11-05 08:13] LABS: BUN/Creatinine Ratio 54 (6-26); Blood Urea Nitrogen 37 mg/dL (8-23); Calcium 9.7 mg/dL (8.6-10.3); Carbon Dioxide 33 mEq/L (23-29); Chloride 98 mEq/L (98-107); Glucose 156 mg/dL (70-105); Magnesium 1.7 mg/dL (1.6-2.6); Osmolality,Calculated 292 (280-300); Phosphorous 3.5 mg/dL (2.7-4.5); Sodium 135 mEq/L (136-145); eGFR For African Americans > 60 (> 60); eGFR For Non-African Americans > 60 (> 60)
[2020-11-05] MEDS: carBAMazepine 200 MG TABLET PO SCH ×2 (08:55→22:48)
[2020-11-05] MEDS: Nicotine 21 MG PATCH.TD24 TD SCH (09:09)
[2020-11-05] MEDS: Furosemide 40 MG TABLET PO SCH (09:09)
[2020-11-05] MEDS: Budesonide/Formoterol 160/4.5 1 PUFF INH IH SCH ×2 (10:02→21:30)
[2020-11-05] MEDS: Metoprolol XL (24 HR) Succ 50 MG TAB.ER.24H PO SCH (22:49)
[2020-11-06 01:58] LABS: Hematocrit 35.5 % (35.3-44.9); Hemoglobin 11.5 g/dL (11.5-15.4); Mean Corpuscular HGB Conc 32.4 g/dL (31.6-35.5); Mean Corpuscular Hemoglobin 34.1 pg (28.0-33.3); Mean Corpuscular Volume 105.3 fL (83.0-100.0); Mean Platelet Volume 10.3 fL (9.4-12.4); Platelet Count 269 K/mcL (140-400); Red Blood Count 3.37 M/mcL (3.82-4.97); Red Cell Distribution Width 15.7 % (11.5-14.5); White Blood Count 10.9 K/mcL (4.3-11.1)
[2020-11-06 02:03] LABS: INR 2.6; Prothrombin Time 29.8 Seconds (9.4-12.1)
[2020-11-06 02:16] LABS: BUN/Creatinine Ratio 66 (6-26); Blood Urea Nitrogen 46 mg/dL (8-23); Calcium 9.8 mg/dL (8.6-10.3); Carbon Dioxide 33 mEq/L (23-29); Chloride 94 mEq/L (98-107); Glucose 128 mg/dL (70-105); Magnesium 1.9 mg/dL (1.6-2.6); Osmolality,Calculated 292 (280-300); Phosphorous 4.3 mg/dL (2.7-4.5); Potassium 4.5 mEq/L (3.5-5.1); Sodium 134 mEq/L (136-145); eGFR For African Americans > 60 (> 60); eGFR For Non-African Americans > 60 (> 60)
[2020-11-06] MEDS: Ipratropium/Albuterol Neb 3 ML IH SCH ×2 (03:45→10:43)
[2020-11-06] MEDS: Levothyroxine 25 MCG TABLET PO SCH (05:41)
[2020-11-06] MEDS ORDERED: Regadenoson 0.4 MG/5 ML SYRINGE IVP ONE (06:31)
[2020-11-06 06:47] VITALS: BP 128/83
[2020-11-06] MEDS: Nicotine 21 MG PATCH.TD24 TD SCH (08:10)
[2020-11-06] MEDS: carBAMazepine 200 MG TABLET PO SCH (08:19)
[2020-11-06] MEDS: Furosemide 40 MG TABLET PO SCH (08:19)
[2020-11-06] MEDS: Metoprolol XL (24 HR) Succ 50 MG TAB.ER.24H PO SCH (08:19)
[2020-11-06] MEDS ORDERED: lisinopriL 5 MG TABLET PO SCH (09:00)
[2020-11-06] MEDS: Budesonide/Formoterol 160/4.5 1 PUFF INH IH SCH (10:42)
[2020-11-06] MEDS ORDERED: *HR* Warfarin 2.5 MG TABLET PO ONE (18:00)
== END 2020-11-06 15:45 | disposition home or self-care (01) | DRG 189 ==
LOC: ICNU 09:51 → SUATTDRO 09:51 → 3ANU 11-02 12:47
PROVIDERS: ADMIT Pediatrics; ATTEND Family Medicine

== ENCOUNTER 2021-01-03 03:36 | Inpatient (IN) ==
[2021-01-03] MEDS: FentaNYL (PF) 1,000 MCG/100 ML IV.SOLN IVC SCH ×2 (09:30→22:55)
[2021-01-03] MEDS ORDERED: Acetaminophen 325 MG TABLET PO PRN (09:39)
[2021-01-03] MEDS ORDERED: Naloxone 0.4 MG/ML INJ IVP PRN (09:39)
[2021-01-03] MEDS ORDERED: Azithromycin 500 MG in 0.9 % Sodium Chloride 250 ML IVPB ONE (09:39)
[2021-01-03] MEDS ORDERED: Artificial Tears SOLN 15 ML BOTTLE BOTH EYES PRN (09:39)
[2021-01-03 09:43] LABS: ABG Base Excess 0 mEq/L (-2 to 3); ABG HCO3 25 mEq/L (21-27); ABG Oxygen Saturation 94 % (95-98); ABG PCO2 45 mmHg (35-45); ABG PH 7.36 pH Units (7.32-7.45); ABG PO2 75 mmHg (85-104); ABG TCO2 27 mEq/L (20-26); Blood Gas Modality ASSIST CONTROL; Blood Gas VT 420 cc
[2021-01-03] MEDS ORDERED: Albuterol 2.5 MG/3 ML NEBULIZER IH PRN (09:47)
[2021-01-03] MEDS: Ipratropium/Albuterol Neb 3 ML IH SCH ×4 (11:02→23:13)
[2021-01-03] MEDS: Artificial Tears SOLN 15 ML BOTTLE BOTH EYES SCH ×4 (11:28→23:15)
[2021-01-03] MEDS: cefTRIAXone 2,000 MG in Water for inj. (sterile) 20 ML IVP SCH (11:28)
[2021-01-03] MEDS: MethylPREDNISolone 40 MG/ML VIAL IVP SCH ×2 (11:28→17:10)
[2021-01-03] MEDS: Pantoprazole 40 MG VIAL IVP SCH (11:29)
[2021-01-03 15:24] LABS: Basophils % 0.1 %; Hematocrit 30.3 % (35.3-44.9); Immature Granulocytes % 0.8 % (0-4); Lymphocytes # 0.6 K/mcL (0.6-4.6); Lymphocytes % 5.1 %; Mean Corpuscular Hemoglobin 34.7 pg (28.0-33.3); Mean Corpuscular Volume 105.2 fL (83.0-100.0); Mean Platelet Volume 10.3 fL (9.4-12.4); Monocytes # 0.5 K/mcL (0.0-1.3); Monocytes % 4.3 %; Neutrophils # 10.1 K/mcL (1.6-8.9); Nucleated Red Blood Cells 0.2 /100 WBC (0); Platelet Count 198 K/mcL (140-400); Red Blood Count 2.88 M/mcL (3.82-4.97); Red Cell Distribution Width 16.3 % (11.5-14.5); Segmented Neutrophils % 89.7 %; White Blood Count 11.2 K/mcL (4.3-11.1)
[2021-01-03 15:40] LABS: INR 2.1; Prothrombin Time 24.2 Seconds (9.4-12.1)
[2021-01-03 15:42] LABS: Activated Partial Thrombo Time 28.5 Seconds (26.0-36.0)
[2021-01-03 15:54] LABS: Alanine Aminotransferase 9 Units/L (7-52); Albumin 3.2 g/dL (3.5-5.7); Albumin/Globulin Ratio 1.1 (1.1-2.2); Alkaline Phosphatase 68 Units/L (34-104); Aspartate Amino Transferase 12 Units/L (13-39); BUN/Creatinine Ratio 23 (6-26); Bilirubin,Direct 0.1 mg/dL (0.0-0.2); Bilirubin,Indirect 0.4 mg/dL (0.0-1.0); Bilirubin,Total 0.5 mg/dL (0.3-1.0); Blood Urea Nitrogen 11 mg/dL (8-23); Calcium 8.9 mg/dL (8.6-10.3); Carbon Dioxide 26 mEq/L (23-29); Chloride 103 mEq/L (98-107); Globulin 2.9 g/dL (2.4-3.5); Glucose 135 mg/dL (70-105); Magnesium 1.9 mg/dL (1.6-2.6); Osmolality,Calculated 277 (280-300); Phosphorous 2.9 mg/dL (2.7-4.5); Potassium 4.8 mEq/L (3.5-5.1); Sodium 133 mEq/L (136-145); Total Protein 6.1 g/dL (6.4-8.9); eGFR For African Americans > 60 (> 60); eGFR For Non-African Americans > 60 (> 60)
[2021-01-03] MEDS ORDERED: Furosemide 40 MG/4 ML VIAL IVP ONE (16:23)
[2021-01-03] MEDS: *HR* Heparin 5,000 UNIT/ML VIAL SQ SCH (17:09)
[2021-01-03] MEDS: Chlorhexidine Rinse 15 ML MOUTHWASH MM SCH (19:58)
[2021-01-03] MEDS ORDERED: *HR* Metoprolol 5 MG/5 ML VIAL IVP ONE (21:18)
[2021-01-04] MEDS: Ipratropium/Albuterol Neb 3 ML IH SCH ×8 (03:19→23:40)
[2021-01-04] MEDS: Artificial Tears SOLN 15 ML BOTTLE BOTH EYES SCH ×5 (03:20→19:26)
[2021-01-04 03:43] LABS: VBG Ionized Calcium 1.24 mmol/L (1.15-1.35)
[2021-01-04 03:55] LABS: Basophils % 0.1 %; Hematocrit 31.2 % (35.3-44.9); Hemoglobin 10.2 g/dL (11.5-15.4); Immature Granulocytes % 1.3 % (0-4); Lymphocytes # 1.3 K/mcL (0.6-4.6); Lymphocytes % 11.5 %; Mean Corpuscular HGB Conc 32.7 g/dL (31.6-35.5); Mean Platelet Volume 9.7 fL (9.4-12.4); Monocytes # 0.8 K/mcL (0.0-1.3); Neutrophils # 9.1 K/mcL (1.6-8.9); Nucleated Red Blood Cells 0.6 /100 WBC (0); Platelet Count 215 K/mcL (140-400); Red Cell Distribution Width 16.3 % (11.5-14.5); Segmented Neutrophils % 80.1 %; White Blood Count 11.3 K/mcL (4.3-11.1)
[2021-01-04 03:58] LABS: ABG Base Excess 3 mEq/L (-2 to 3); ABG HCO3 29 mEq/L (21-27); ABG Oxygen Saturation 95 % (95-98); ABG PCO2 49 mmHg (35-45); ABG PH 7.38 pH Units (7.32-7.45); ABG PO2 76 mmHg (85-104); ABG TCO2 30 mEq/L (20-26); Blood Gas Modality ASSIST CONTROL; Blood Gas VT 420 cc
[2021-01-04 04:18] LABS: BUN/Creatinine Ratio 22 (6-26); Blood Urea Nitrogen 13 mg/dL (8-23); Calcium 9.3 mg/dL (8.6-10.3); Carbon Dioxide 28 mEq/L (23-29); Chloride 101 mEq/L (98-107); Glucose 103 mg/dL (70-105); Magnesium 1.8 mg/dL (1.6-2.6); Osmolality,Calculated 280 (280-300); Phosphorous 3.9 mg/dL (2.7-4.5); Potassium 4.8 mEq/L (3.5-5.1); Sodium 135 mEq/L (136-145); Troponin I 0.05 ng/mL (< 0.04); eGFR For African Americans > 60 (> 60); eGFR For Non-African Americans > 60 (> 60)
[2021-01-04] MEDS: MethylPREDNISolone 40 MG/ML VIAL IVP SCH ×2 (05:45→17:52)
[2021-01-04] MEDS: *HR* Heparin 5,000 UNIT/ML VIAL SQ SCH ×2 (05:45→17:52)
[2021-01-04] MEDS: Chlorhexidine Rinse 15 ML MOUTHWASH MM SCH ×2 (07:37→19:26)
[2021-01-04] MEDS: Pantoprazole 40 MG VIAL IVP SCH (07:37)
[2021-01-04] MEDS ORDERED: Furosemide 20 MG/2 ML VIAL IVP ONE (08:29)
[2021-01-04] MEDS: cefTRIAXone 2,000 MG in Water for inj. (sterile) 20 ML IVP SCH (10:50)
[2021-01-04 12:26] LABS: INR 1.7; Prothrombin Time 19.2 Seconds (9.4-12.1)
[2021-01-04] MEDS ORDERED: *HR* Metoprolol 5 MG/5 ML VIAL IVP ONE (13:13)
[2021-01-05] MEDS: Ipratropium/Albuterol Neb 3 ML IH SCH ×5 (03:34→19:39)
[2021-01-05] MEDS: Artificial Tears SOLN 15 ML BOTTLE BOTH EYES SCH ×3 (03:47→11:18)
[2021-01-05 04:01] LABS: VBG Ionized Calcium 1.23 mmol/L (1.15-1.35)
[2021-01-05 04:10] LABS: Basophils % 0.2 %; Eosinophils % 0.1 %; Hematocrit 32.3 % (35.3-44.9); Hemoglobin 10.4 g/dL (11.5-15.4); Immature Granulocytes % 1.6 % (0-4); Lymphocytes # 1.1 K/mcL (0.6-4.6); Lymphocytes % 12.4 %; Mean Corpuscular HGB Conc 32.2 g/dL (31.6-35.5); Mean Corpuscular Hemoglobin 33.5 pg (28.0-33.3); Mean Corpuscular Volume 104.2 fL (83.0-100.0); Mean Platelet Volume 9.8 fL (9.4-12.4); Monocytes # 0.7 K/mcL (0.0-1.3); Monocytes % 7.8 %; Nucleated Red Blood Cells 0.9 /100 WBC (0); Platelet Count 226 K/mcL (140-400); Red Cell Distribution Width 15.9 % (11.5-14.5); Segmented Neutrophils % 77.9 %
[2021-01-05 04:19] LABS: INR 1.5; Prothrombin Time 17.5 Seconds (9.4-12.1)
[2021-01-05 04:31] LABS: BUN/Creatinine Ratio 26 (6-26); Blood Urea Nitrogen 16 mg/dL (8-23); Carbon Dioxide 31 mEq/L (23-29); Chloride 98 mEq/L (98-107); Glucose 112 mg/dL (70-105); Magnesium 1.9 mg/dL (1.6-2.6); Osmolality,Calculated 280 (280-300); Phosphorous 3.4 mg/dL (2.7-4.5); Potassium 4.3 mEq/L (3.5-5.1); Sodium 134 mEq/L (136-145); eGFR For African Americans > 60 (> 60); eGFR For Non-African Americans > 60 (> 60)
[2021-01-05] MEDS: MethylPREDNISolone 40 MG/ML VIAL IVP SCH (05:27)
[2021-01-05] MEDS: *HR* Heparin 5,000 UNIT/ML VIAL SQ SCH (05:28)
[2021-01-05] MEDS ORDERED: Furosemide 40 MG/4 ML VIAL IVP ONE (08:00)
[2021-01-05] MEDS ORDERED: *HR* Enoxaparin 40 MG/0.4 ML SYRINGE SQ SCH ×2 (08:00→18:00)
[2021-01-05] MEDS: Chlorhexidine Rinse 15 ML MOUTHWASH MM SCH (08:25)
[2021-01-05] MEDS: Pantoprazole 40 MG VIAL IVP SCH (08:25)
[2021-01-05] MEDS ORDERED: Azithromycin 250 MG TABLET PO SCH ×2 (09:00)
[2021-01-05] MEDS: FentaNYL (PF) 1,000 MCG/100 ML IV.SOLN IVC SCH (09:16)
[2021-01-05] MEDS ORDERED: Doxycycline 100 MG CAPSULE PO SCH (10:00)
[2021-01-05] MEDS ORDERED: Albuterol 2.5 MG/3 ML NEBULIZER IH PRN (13:05)
[2021-01-05] MEDS ORDERED: Naloxone 0.4 MG/ML INJ IVP PRN (13:05)
[2021-01-05] MEDS: *HR* Enoxaparin 40 MG/0.4 ML SYRINGE SQ SCH (16:13)
[2021-01-05] MEDS ORDERED: *HR* Warfarin 3 MG TABLET PO ONE ×2 (18:00)
[2021-01-05] MEDS ORDERED: Warfarin perPT PO PRN ×2 (18:00)
[2021-01-05] MEDS: Doxycycline 100 MG CAPSULE PO SCH (20:44)
[2021-01-06] MEDS: Ipratropium/Albuterol Neb 3 ML IH SCH ×7 (00:50→23:42)
[2021-01-06] MEDS: Acetaminophen 325 MG TABLET PO PRN ×2 (01:40→14:22)
[2021-01-06 03:04] LABS: Basophils % 0.2 %; Eosinophils # 0.1 K/mcL (0.0-0.6); Eosinophils % 0.8 %; Hematocrit 30.3 % (35.3-44.9); Hemoglobin 10.1 g/dL (11.5-15.4); Immature Granulocytes % 1.9 % (0-4); Lymphocytes # 2.4 K/mcL (0.6-4.6); Lymphocytes % 28.6 %; Mean Corpuscular HGB Conc 33.3 g/dL (31.6-35.5); Mean Corpuscular Hemoglobin 34.2 pg (28.0-33.3); Mean Corpuscular Volume 102.7 fL (83.0-100.0); Mean Platelet Volume 10.4 fL (9.4-12.4); Monocytes # 0.7 K/mcL (0.0-1.3); Monocytes % 8.7 %; Neutrophils # 4.9 K/mcL (1.6-8.9); Nucleated Red Blood Cells 0.5 /100 WBC (0); Platelet Count 223 K/mcL (140-400); Red Blood Count 2.95 M/mcL (3.82-4.97); Red Cell Distribution Width 16.2 % (11.5-14.5); Segmented Neutrophils % 59.8 %; White Blood Count 8.3 K/mcL (4.3-11.1)
[2021-01-06 03:05] LABS: VBG Ionized Calcium 1.13 mmol/L (1.15-1.35)
[2021-01-06 03:11] LABS: INR 1.5; Prothrombin Time 17.2 Seconds (9.4-12.1)
[2021-01-06 03:25] LABS: Alanine Aminotransferase 10 Units/L (7-52); Albumin 3.2 g/dL (3.5-5.7); Albumin/Globulin Ratio 1.1 (1.1-2.2); Alkaline Phosphatase 60 Units/L (34-104); Aspartate Amino Transferase 14 Units/L (13-39); BUN/Creatinine Ratio 38 (6-26); Bilirubin,Total 0.5 mg/dL (0.3-1.0); Blood Urea Nitrogen 23 mg/dL (8-23); Calcium 8.8 mg/dL (8.6-10.3); Carbon Dioxide 31 mEq/L (23-29); Chloride 101 mEq/L (98-107); Globulin 2.9 g/dL (2.4-3.5); Glucose 106 mg/dL (70-105); Magnesium 1.6 mg/dL (1.6-2.6); Osmolality,Calculated 288 (280-300); Phosphorous 2.2 mg/dL (2.7-4.5); Potassium 3.7 mEq/L (3.5-5.1); Sodium 137 mEq/L (136-145); Total Protein 6.1 g/dL (6.4-8.9); eGFR For African Americans > 60 (> 60); eGFR For Non-African Americans > 60 (> 60)
[2021-01-06] MEDS: Levothyroxine 25 MCG TABLET PO SCH (05:13)
[2021-01-06] MEDS: *HR* Enoxaparin 40 MG/0.4 ML SYRINGE SQ SCH ×2 (05:13→16:15)
[2021-01-06] MEDS: Doxycycline 100 MG CAPSULE PO SCH ×2 (08:53→20:09)
[2021-01-06] MEDS: lisinopriL 5 MG TABLET PO SCH (08:53)
[2021-01-06] MEDS: Furosemide 40 MG TABLET PO SCH (08:53)
[2021-01-06] MEDS ORDERED: MethylPREDNISolone 40 MG/ML VIAL IVP SCH (09:00)
[2021-01-06] MEDS: Budesonide/Formoterol 160/4.5 1 PUFF INH IH SCH ×2 (11:27→19:56)
[2021-01-06] MEDS ORDERED: Ondansetron 4 MG/2 ML VIAL IVP PRN (15:38)
[2021-01-06] MEDS ORDERED: *HR* Warfarin 3 MG TABLET PO ONE (18:00)
[2021-01-07] MEDS: Ipratropium/Albuterol Neb 3 ML IH SCH ×3 (03:54→10:58)
[2021-01-07] MEDS: *HR* Enoxaparin 40 MG/0.4 ML SYRINGE SQ SCH (04:09)
[2021-01-07 05:24] LABS: INR 1.6; Prothrombin Time 18.2 Seconds (9.4-12.1)
[2021-01-07] MEDS: Levothyroxine 25 MCG TABLET PO SCH (05:30)
[2021-01-07 05:59] LABS: Folate 3.9 ng/mL (3.0-16.0)
[2021-01-07 07:17] VITALS: BP 109/65
[2021-01-07] MEDS: Budesonide/Formoterol 160/4.5 1 PUFF INH IH SCH (07:22)
[2021-01-07] MEDS: Doxycycline 100 MG CAPSULE PO SCH (07:45)
[2021-01-07] MEDS: lisinopriL 5 MG TABLET PO SCH (07:45)
[2021-01-07] MEDS: Furosemide 40 MG TABLET PO SCH (07:45)
[2021-01-07] MEDS ORDERED: predniSONE 20 MG TABLET PO SCH (09:00)
== END 2021-01-07 11:18 | disposition home or self-care (01) | DRG 208 ==
LOC: SUATTDRO 08:46 → ICNU 08:46 → 2ANU 01-05 14:52
PROVIDERS: ADMIT Internal Medicine; ATTEND Internal Medicine

== ENCOUNTER 2021-01-08 10:18 | Inpatient (IN) ==
[2021-01-08] MEDS ORDERED: methylPREDNISolone 125 MG/2 ML VIAL IVP ONE (10:25)
[2021-01-08] MEDS ORDERED: Ipratropium/Albuterol Neb 3 ML IH ONE (10:26)
[2021-01-08 11:18] LABS: Basophils # 0.1 K/mcL (0.0-0.2); Basophils % 0.3 %; Eosinophils # 0.1 K/mcL (0.0-0.6); Eosinophils % 0.6 %; Hematocrit 37.7 % (35.3-44.9); Immature Granulocytes % 1.3 % (0-4); Lymphocytes # 2.8 K/mcL (0.6-4.6); Lymphocytes % 16.7 %; Mean Corpuscular HGB Conc 32.1 g/dL (31.6-35.5); Mean Corpuscular Hemoglobin 33.9 pg (28.0-33.3); Mean Corpuscular Volume 105.6 fL (83.0-100.0); Mean Platelet Volume 9.8 fL (9.4-12.4); Monocytes # 1.3 K/mcL (0.0-1.3); Monocytes % 7.9 %; Neutrophils # 12.4 K/mcL (1.6-8.9); Nucleated Red Blood Cells 0.4 /100 WBC (0); Platelet Count 281 K/mcL (140-400); Red Blood Count 3.57 M/mcL (3.82-4.97); Red Cell Distribution Width 16.1 % (11.5-14.5); Segmented Neutrophils % 73.2 %
[2021-01-08 11:20] LABS: Hemoglobin 12.1 g/dL (11.5-15.4); White Blood Count 16.9 K/mcL (4.3-11.1)
[2021-01-08 11:26] LABS: INR 1.5; Prothrombin Time 17.1 Seconds (9.4-12.1)
[2021-01-08 11:29] LABS: Activated Partial Thrombo Time 25.8 Seconds (26.0-36.0)
[2021-01-08 11:37] LABS: Alanine Aminotransferase 14 Units/L (7-52); Albumin 4.1 g/dL (3.5-5.7); Albumin/Globulin Ratio 1.3 (1.1-2.2); Alkaline Phosphatase 76 Units/L (34-104); Aspartate Amino Transferase 17 Units/L (13-39); BUN/Creatinine Ratio 46 (6-26); Bilirubin,Direct 0.1 mg/dL (0.0-0.2); Bilirubin,Indirect 0.5 mg/dL (0.0-1.0); Bilirubin,Total 0.6 mg/dL (0.3-1.0); Blood Urea Nitrogen 26 mg/dL (8-23); Calcium 9.8 mg/dL (8.6-10.3); Carbon Dioxide 32 mEq/L (23-29); Chloride 100 mEq/L (98-107); Globulin 3.2 g/dL (2.4-3.5); Glucose 119 mg/dL (70-105); Osmolality,Calculated 290 (280-300); Sodium 137 mEq/L (136-145); Total Protein 7.3 g/dL (6.4-8.9); Troponin I 0.03 ng/mL (< 0.04); eGFR For African Americans > 60 (> 60); eGFR For Non-African Americans > 60 (> 60)
[2021-01-08] MEDS ORDERED: Naloxone 0.4 MG/ML INJ IVP PRN (13:13)
[2021-01-08] MEDS ORDERED: Ondansetron 4 MG/2 ML VIAL IVP PRN (13:13)
[2021-01-08] MEDS ORDERED: Acetaminophen 325 MG TABLET PO PRN (13:13)
[2021-01-08] MEDS ORDERED: *HR* Digoxin 0.5 MG/2 ML AMPUL IVP ONE (14:05)
[2021-01-08] MEDS: Furosemide 20 MG/2 ML VIAL IVP SCH (16:07)
[2021-01-08] MEDS: carBAMazepine 200 MG TABLET PO SCH ×2 (16:07→21:20)
[2021-01-08] MEDS: Ipratropium/Albuterol Neb 3 ML IH SCH ×2 (16:48→18:23)
[2021-01-08] MEDS ORDERED: *HR* Rivaroxaban 15 MG TABLET PO SCH (17:00)
[2021-01-08] MEDS: MethylPREDNISolone 40 MG/ML VIAL IVP SCH (18:19)
[2021-01-08] MEDS: Doxycycline 100 MG CAPSULE PO SCH (21:20)
[2021-01-08] MEDS: Budesonide/Formoterol 160/4.5 1 PUFF INH IH SCH ×2 (22:40)
[2021-01-09] MEDS: MethylPREDNISolone 40 MG/ML VIAL IVP SCH ×3 (00:34→18:19)
[2021-01-09] MEDS: Ipratropium/Albuterol Neb 3 ML IH SCH ×7 (00:37→23:52)
[2021-01-09 02:51] LABS: Basophils % 0.2 %; Hematocrit 31.6 % (35.3-44.9); Hemoglobin 10.7 g/dL (11.5-15.4); Immature Granulocytes % 1.4 % (0-4); Lymphocytes # 0.8 K/mcL (0.6-4.6); Lymphocytes % 7.5 %; Mean Corpuscular HGB Conc 33.9 g/dL (31.6-35.5); Mean Corpuscular Hemoglobin 34.6 pg (28.0-33.3); Mean Corpuscular Volume 102.3 fL (83.0-100.0); Mean Platelet Volume 10.5 fL (9.4-12.4); Monocytes # 0.7 K/mcL (0.0-1.3); Monocytes % 6.1 %; Neutrophils # 9.3 K/mcL (1.6-8.9); Nucleated Red Blood Cells 0.3 /100 WBC (0); Platelet Count 247 K/mcL (140-400); Red Blood Count 3.09 M/mcL (3.82-4.97); Red Cell Distribution Width 15.9 % (11.5-14.5); Segmented Neutrophils % 84.8 %
[2021-01-09 06:28] LABS: BUN/Creatinine Ratio 46 (6-26); Blood Urea Nitrogen 24 mg/dL (8-23); Calcium 9.5 mg/dL (8.6-10.3); Carbon Dioxide 33 mEq/L (23-29); Chloride 97 mEq/L (98-107); Glucose 148 mg/dL (70-105); Magnesium 1.9 mg/dL (1.6-2.6); Osmolality,Calculated 289 (280-300); Potassium 4.2 mEq/L (3.5-5.1); Sodium 136 mEq/L (136-145); eGFR For African Americans > 60 (> 60); eGFR For Non-African Americans > 60 (> 60)
[2021-01-09] MEDS: Budesonide/Formoterol 160/4.5 1 PUFF INH IH SCH ×2 (07:29→19:56)
[2021-01-09] MEDS: Furosemide 20 MG/2 ML VIAL IVP SCH ×2 (07:52→18:19)
[2021-01-09] MEDS: carBAMazepine 200 MG TABLET PO SCH ×2 (07:52→20:26)
[2021-01-09] MEDS: Doxycycline 100 MG CAPSULE PO SCH ×2 (07:52→20:26)
[2021-01-09] MEDS ORDERED: Levothyroxine 25 MCG TABLET PO SCH (09:00)
[2021-01-09 11:21] LABS: INR 1.8
[2021-01-09] MEDS ORDERED: Warfarin perPT PO PRN (18:00)
[2021-01-09] MEDS ORDERED: *HR* Warfarin 4 MG TABLET PO ONE (18:00)
[2021-01-09 19:45] LABS: Adenovirus Not Detected (Not Detect); Bordetella Pertussis Not Detected (Not Detect); Chlamydophila pneumoniae Not Detected (Not Detect); Coronavirus 229E Not Detected (Not Detect); Coronavirus HKU1 Not Detected (Not Detect); Coronavirus NL63 Not Detected (Not Detect); Coronavirus OC43 Not Detected (Not Detect); Human Metapneumovirus Not Detected (Not Detect); Human Rhinovirus/Enterovirus Not Detected (Not Detect); Influenza A Subtype 2009 H1 Not Detected (Not Detect); Influenza B Not Detected (Not Detect); Mycoplasma pneumoniae Not Detected (Not Detect); Parainfluenza Virus 1 Not Detected (Not Detect); Parainfluenza Virus 2 Not Detected (Not Detect); Parainfluenza Virus 3 Not Detected (Not Detect); Parainfluenza Virus 4 Not Detected (Not Detect); Respiratory Syncytial Virus Not Detected (Not Detect); SARS-CoV-2 Not Detected (Not Detect)
[2021-01-10] MEDS: MethylPREDNISolone 40 MG/ML VIAL IVP SCH ×2 (00:52→07:52)
[2021-01-10] MEDS: Ipratropium/Albuterol Neb 3 ML IH SCH ×6 (03:31→23:42)
[2021-01-10] MEDS: Levothyroxine 25 MCG TABLET PO SCH (05:37)
[2021-01-10 06:12] LABS: INR 1.8; Prothrombin Time 20.3 Seconds (9.4-12.1)
[2021-01-10] MEDS: Budesonide/Formoterol 160/4.5 1 PUFF INH IH SCH ×2 (07:38→20:05)
[2021-01-10] MEDS: Doxycycline 100 MG CAPSULE PO SCH ×2 (07:53→20:32)
[2021-01-10] MEDS: Furosemide 20 MG/2 ML VIAL IVP SCH ×2 (07:53→16:48)
[2021-01-10] MEDS: carBAMazepine 200 MG TABLET PO SCH ×2 (07:53→20:33)
[2021-01-10] MEDS ORDERED: lisinopriL 5 MG TABLET PO SCH ×2 (09:00)
[2021-01-10] MEDS ORDERED: Spironolactone 12.5 MG TABLET PO SCH (09:00)
[2021-01-10] MEDS ORDERED: *HR* Warfarin 4 MG TABLET PO ONE (18:00)
[2021-01-11 02:56] LABS: Basophils # 0.1 K/mcL (0.0-0.2); Basophils % 0.4 %; Eosinophils # 0.1 K/mcL (0.0-0.6); Eosinophils % 0.4 %; Hematocrit 30.9 % (35.3-44.9); Hemoglobin 10.2 g/dL (11.5-15.4); Immature Granulocytes % 1.8 % (0-4); Lymphocytes # 3.1 K/mcL (0.6-4.6); Lymphocytes % 25.5 %; Mean Corpuscular Hemoglobin 34.1 pg (28.0-33.3); Mean Corpuscular Volume 103.3 fL (83.0-100.0); Monocytes # 1.1 K/mcL (0.0-1.3); Monocytes % 9.3 %; Neutrophils # 7.5 K/mcL (1.6-8.9); Nucleated Red Blood Cells 0.3 /100 WBC (0); Platelet Count 233 K/mcL (140-400); Red Blood Count 2.99 M/mcL (3.82-4.97); Red Cell Distribution Width 16.2 % (11.5-14.5); Segmented Neutrophils % 62.6 %
[2021-01-11 03:08] LABS: BUN/Creatinine Ratio 57 (6-26); Blood Urea Nitrogen 49 mg/dL (8-23); Calcium 8.8 mg/dL (8.6-10.3); Carbon Dioxide 32 mEq/L (23-29); Chloride 98 mEq/L (98-107); Glucose 106 mg/dL (70-105); Osmolality,Calculated 293 (280-300); Potassium 3.7 mEq/L (3.5-5.1); Sodium 135 mEq/L (136-145); eGFR For African Americans > 60 (> 60); eGFR For Non-African Americans > 60 (> 60)
[2021-01-11] MEDS: Ipratropium/Albuterol Neb 3 ML IH SCH ×3 (04:09→11:27)
[2021-01-11] MEDS: Levothyroxine 25 MCG TABLET PO SCH (05:25)
[2021-01-11] MEDS: Budesonide/Formoterol 160/4.5 1 PUFF INH IH SCH (07:26)
[2021-01-11] MEDS ORDERED: 0.9 % Sodium Chloride 250 ML IVC ONE (08:20)
[2021-01-11] MEDS: carBAMazepine 200 MG TABLET PO SCH (08:22)
[2021-01-11] MEDS: Doxycycline 100 MG CAPSULE PO SCH (08:23)
[2021-01-11] MEDS ORDERED: lisinopriL 5 MG TABLET PO SCH (09:00)
[2021-01-11] MEDS ORDERED: Furosemide 20 MG TABLET PO SCH (09:00)
[2021-01-11] MEDS ORDERED: predniSONE 20 MG TABLET PO SCH (09:00)
[2021-01-11] MEDS ORDERED: Tiotropium 10 INH DOSE IH SCH (10:00)
[2021-01-11 12:31] VITALS: BP 115/72
[2021-01-11] MEDS ORDERED: *HR* Warfarin 4 MG TABLET PO ONE (18:00)
== END 2021-01-11 14:31 | disposition home or self-care (01) | DRG 291 ==
LOC: 2ANU 10:18 → EMEROOARM 10:18 → 2ANU 16:18 → SUATTDRO 01-09 15:29
PROVIDERS: ADMIT Internal Medicine; ATTEND General Practice

== ENCOUNTER 2021-01-23 08:34 | Inpatient (IN) ==
[2021-01-23] MEDS ORDERED: Ipratropium/Albuterol Neb 3 ML IH ONE (08:50)
[2021-01-23] MEDS ORDERED: 0.9 % Sodium Chloride 1,000 ML IVC ONE (09:00)
[2021-01-23] MEDS ORDERED: Ketamine *HR* 500 MG/10 ML MDV IVP ONE (09:30)
[2021-01-23] MEDS ORDERED: Ondansetron 4 MG/2 ML VIAL IVP PRN (10:35)
[2021-01-23] MEDS ORDERED: Naloxone 0.4 MG/ML INJ IVP PRN (10:35)
[2021-01-23] MEDS ORDERED: Azithromycin 500 MG in 0.9 % Sodium Chloride 250 ML IVPB SCH (11:00)
[2021-01-23] MEDS: Morphine Sulfate 2 MG/ML SYRINGE IVP PRN ×4 (12:03→23:07)
[2021-01-23] MEDS: *HR* LORazepam 2 MG/ML VIAL IVP PRN ×3 (12:05→23:07)
[2021-01-23] MEDS ORDERED: MethylPREDNISolone 40 MG/ML VIAL IVP SCH (18:00)
[2021-01-24] MEDS: *HR* LORazepam 2 MG/ML VIAL IVP PRN ×2 (02:42→09:30)
[2021-01-24] MEDS: Morphine Sulfate 2 MG/ML SYRINGE IVP PRN ×2 (02:42→09:32)
[2021-01-24 07:33] VITALS: BP 107/61
[2021-01-24] MEDS ORDERED: Atropine 1% Opth Drops 100 DROP/5 ML BOTTLE SL PRN (09:49)
[2021-01-24] MEDS ORDERED: Morphine Sulfate 2 MG/ML SYRINGE IVP PRN (09:50)
[2021-01-24] MEDS ORDERED: Acetaminophen 650 MG RECTAL SUPP RC PRN (15:30)
== END 2021-01-24 17:30 | disposition expired | DRG 190 ==
LOC: EMEROOARM 08:34 → 2ANU 08:34
PROVIDERS: ADMIT Internal Medicine; ATTEND Internal Medicine